=== PATIENT | female | born 1990 | race Caucasian/White ===

== ENCOUNTER → 2017-09-06 | Outpatient (CLI) | payer BC ==
[~2017-09-06] MED LIST: DESO1TAB10 PO; DESO1TAB16 PO; PANT40TA65 PO
--- NOTE | 2017-09-06 17:43 | RADIOLOGY IMAGING REPORT ---
FACILITY: [facility] PATIENT NAME: Karli Spears : 1990 MR: [id number] V: [id number] EXAM DATE: ORDERING PHYSICIAN: JALEN OVALLES TECHNOLOGIST: Location: [facility] Patient: Karli Spears : 1990 Visit/Account:[id number] Date of Sevice: 09/06/2017 GALLBLADDER HISTORY: Right upper quadrant pain COMPARISON: None. FINDINGS: Gallbladder: Unremarkable; no stones or sludge. Liver: 17.9 cm in length however the patient is 5 foot 11 inches and this may be an anatomic variant Common duct: Normal, 2.7 mm diameter. Pancreas: Partially obscured by bowel, visualized aspects unremarkable. Right kidney: Appears unremarkable measuring 10.7 cm in length Upper abdominal aorta and IVC: Patent. Ascites: None visualized. IMPRESSION: Liver measures 17.9 centers in length with the patient is 5 foot 11 inches and may be an anatomic carlitos iant. Otherwise unremarkable right upper quadrant ultrasound Report Dictated By: Lillian Waters MD at 09/06/2017 5:38 PM Report E-Signed By: Lillian Waters MD at 09/06/2017 5:40 PM WSN:[email or web address]
== END ==
LOC: US 08:22
PROVIDERS: ATTEND Obstetrics & Gynecology
DX: R10.13 Epigastric pain (principal)
CPT/HCPCS: 76705

== ENCOUNTER → 2017-09-26 | Outpatient (CLI) | payer BC ==
[~2017-09-26] MED LIST changes: +LAN30PT PO; +SINCALIDE 5 MCG VIAL INJ ONE; +WATER FOR INJ,STERILE 20 ML 20 ML ONE
--- NOTE | 2017-09-26 15:20 | RADIOLOGY IMAGING REPORT ---
FACILITY: [facility] PATIENT NAME: Karli Spears : 1990 MR: [id number] V: [id number] EXAM DATE: ORDERING PHYSICIAN: ANITHA SALCIDO TECHNOLOGIST: Location: [facility] [place] Patient: Karli Spears : 1990 Visit/Account:[id number] Date of Sevice: 09/26/2017 HIDA W/CCK HISTORY: See Dx TECHNIQUE: 6.6 mCi Tc99m Hepatolite was injected intravenously. Multiple sequential gamma camera janett ges of the abdomen were obtained for 33 minutes. At that time, Kinevac was injected intravenously and an additional 30 minutes of gamma camera imaging data was acquired. A computer-generated region of i nterest was placed around the gallbladder and time-activity curve for the gallbladder was derived. Th e gallbladder ejection fraction was calculated. COMPARISON: None. FINDINGS: Liver uptake and excretion: Unremarkable. Time to appearance: Bile ducts: 6 minutes. Gallbladder: 8 minutes. Duodenum: 9 minutes. Duodenal-gastric reflux / extravasation: None. Post IV Kinevac: There was delay contraction of the gallbladder Patient symptoms: Minimal nausea with CCK injection Ejection fraction = 31% (normal range >35%). IMPRESSION: Low gallbladder ejection fraction of 31% Report Dictated By: Lillian Waters MD at 09/26/2017 3:15 PM Report E-Signed By: Lillian Waters MD at 09/26/2017 3:16 PM WSN:[email or web address]
== END ==
LOC: NUC 01:27
PROVIDERS: ATTEND Surgery
DX: R93.2 Abnormal findings on diagnostic imaging of liver and biliary tract (principal)
CPT/HCPCS: 78226; A9537; J2805

== ENCOUNTER → 2018-06-23 | Outpatient (CLI) | payer BC ==
[~2018-06-23] MED LIST changes: +BARIUM SULFATE 176 GM BTL PO ONE; +BARIUM SULFATE 340 GM POWD ONE; -SINCALIDE 5 MCG VIAL INJ ONE; -WATER FOR INJ,STERILE 20 ML 20 ML ONE
--- NOTE | 2018-06-23 14:17 | RADIOLOGY IMAGING REPORT ---
FACILITY: [facility] PATIENT NAME: Karli Spears : 1990 MR: [id number] V: [id number] EXAM DATE: ORDERING PHYSICIAN: ANITHA SALCIDO TECHNOLOGIST: Location: [facility] - [place] Patient: Karli Spears : 1990 Visit/Account:[id number] Date of Sevice: 06/23/2018 Exam type: XR UPPER GI SERIES W/O KUB History: Stomach ulcer, abdomen pain, bloating Comparison: None. Findings: Upper GI series was performed with thick and thin barium however the patient declined to take the air crystals for the air contrast portion examination. Although the esophagus was not ideally distended with air no gross abnormality seen. No gross evidence of esophageal stricture or mucosal erosion. Evaluation of the stomach was also somewhat limited due to lack of enteric contrast however no gross evidence of large ulcer crater or other gastric abnormality. Visualized portion of the duodenal bulb and duodenal C-loop appeared unremarkable. Gastroesophageal reflux was not observed. The fluorosco py dose area product was 422.07 micro-Damian per meter squared IMPRESSION: 1. Study was somewhat limited due to a lack of enteric contrast as the patient declined to take air crystals. No gross abnormality of the esophagus stomach or duodenum were identified. Report Dictated By: Lillian Waters MD at 06/23/2018 2:09 PM Report E-Signed By: Lillian Waters MD at 06/23/2018 2:12 PM WSN:[email or web address]
== END ==
LOC: RAD 01:36
PROVIDERS: ATTEND Surgery
DX: R14.0 Abdominal distension (gaseous) (principal); R10.9 Unspecified abdominal pain; Z87.11 Personal history of peptic ulcer disease; R10.13 Epigastric pain
CPT/HCPCS: 74240